=== PATIENT | female | born 1970 | race Caucasian/White ===

== ENCOUNTER → 2024-11-02 | Outpatient (CLI) | payer BC, SELFPAY ==
--- NOTE | 2024-11-02 09:57 | XR_ITS ---
Examination: Duplex scan of the lower extremity, unilateral left Date and time of exam: November 02, 2024 1011 hours INDICATIONS: Left lower leg swelling and pain beginning one week ago Technique: Duplex scan of the extremity veins using B-mode/grayscale imaging and Doppler spectral analysis and color flow Attention is directed to internal echogenicity, compression and augmentation involving these veins, color flow assessment, spectral analysis Findings: Major deep venous structures in the extremity demonstrate normal course and caliber. There is no evidence of deep vein thrombosis. Normal color flow and spectral analysis Impression: Negative for DVT..
== END | disposition home or self-care (01) ==
PROVIDERS: PCP Specialist; Referring Provider Specialist; Visit Provider Specialist
DX: M79.605 Pain in left leg (principal); R22.42 Localized swelling, mass and lump, left lower limb; R26.9 Unspecified abnormalities of gait and mobility
CPT/HCPCS: 93971